=== PATIENT | female | born 1995 | race African-American/Black ===

== ENCOUNTER → 2021-01-17 19:15 | Outpatient (CLI) | payer BC, SELFPAY | PROVIDERS: Visit Provider Nurse Practitioner Family | DX: Z20.822 Contact with and (suspected) exposure to COVID-19 (principal) | CPT/HCPCS: U0003 ==

== ENCOUNTER 2021-02-06 02:47 | Emergency (ER) | payer BC, SELFPAY ==
[2021-02-06 03:02] VITALS: BP 154/96; PULSE 89; RESP 18; TEMP 36.6; O2SAT 100; BMI 37.4
--- NOTE | 2021-02-06 03:16 | CT_ITS ---
PROCEDURE: CT ABDOMEN PELVIS W CON CLINICAL INDICATION: ABD PAIN w/ n/v/d Nausea, vomiting, diarrhea COMPARISON: No exams were available for comparison TECHNIQUE: IV Contrast: 75ML Isovue 370 Oral Contrast None Axial images obtained with sagittal and coronal reformats. All CT scans at the facility use one or more dose reduction, viz: automated exposure control, ma/kV adjustment per patient size (including targeted exams where dose is matched to indication, i.e. head), or iterative reconstruction technique. FINDINGS: LOWER THORAX: No acute finding ABDOMEN & PELVIS: The liver, spleen, pancreas, and adrenal glands have an unremarkable appearance. There are nonobstructing bilateral renal calculi 2 mm in the upper pole on the right and 3 mm in the lower pole on the left. No ureteral calculi. No evidence of appendicitis. There are fluid-filled loops of small bowel involving the ilium measuring to 2.4 cm in diameter with air-fluid levels. There is some mild enhancement with suggestion of some minimal thickening of the terminal ileum best depicted on series 601, image 32. There is mild hyperemia of the small bowel mucosa and prominence of the adjacent mesenteric vasculature. Mild mucosal enhancement of the ascending colon which is fluid-filled nondistended. No free air evident. 2 cm left ovarian cyst. No abnormal fluid collections in the pelvis. Tiny umbilical hernia noted containing fat. Small nodes are present in the inguinal region bilaterally. No acute bony findings. IMPRESSION: 1. Fluid-filled small bowel loops with mucosal enhancement suggesting enteritis. There is some mucosal thickening of the terminal ileum versus nondistention. Crohn's disease would be a consideration. Please correlate with clinical findings. Partial small bowel obstruction is not excluded. 2. Fluid-filled ascending colon with some mucosal enhancement which may be related to accompanying colitis. 3. Nonobstructing bilateral renal calculi Dictated by: Bill Cuevas MD 02/06/2021 06:46 Bill Cuevas MD in [place] 02/06/2021 06:46
[2021-02-06 03:27] LABS: Microscopic, Urine URINE MICROSCOPIC (MICROSCOPIC)
[2021-02-06 03:29] LABS: Appearance,Urine CLEAR (Clear); Bilirubin,Urine Negative (Negative); Blood, Urine Negative (Negative); Color,Urine YELLOW (Yellow); Glucose,Urine (UA) Negative (Negative); Ketones,Urine Negative (Negative); Leukocyte Esterase,Urine Negative (Negative); Nitrate,Urine Negative (Negative); Protein,Urine Negative (Negative); Specific Gravity, Urine >= 1.030 (1.005-1.030); Urobilinogen,Urine 0.2 EU/dl (0.2)
[2021-02-06 03:31] LABS: Basophils % 0.3 % (0.1-2.0); Eosinophils # 0.2 K/mm3 (0.0-0.4); Eosinophils % 1.2 % (0.1-12.0); Hematocrit 45.1 % (37.0-47.0); Hemoglobin 14.1 g/dL (12.2-16.2); Lymphocytes # 2.1 K/mm3 (0.7-4.5); Lymphocytes % 14.9 % (10-50); Mean Corpuscular HGB Conc 31.4 g/dL (31.8-35.4); Mean Corpuscular Hemoglobin 27.8 pg (27.0-31.2); Mean Corpuscular Volume 88.7 fl (81-99); Mean Platelet Volume 8.2 fl (7.4-10.4); Monocytes # 0.8 K/mm3 (0.1-1.0); Monocytes % 5.6 % (1.7-9.3); Neutrophils # 10.7 K/mm3 (1.8-7.8); Platelet Count 233 K/mm3 (142-424); Red Blood Count 5.08 M/mm3 (4.20-5.40); Red Cell Distribution Width 13.8 % (11.5-17.5); White Blood Count 13.7 K/mm3 (4.8-10.8)
[2021-02-06 03:31] LABS: Urine Pregnancy, HCG Qual. Negative (Negative)
[2021-02-06 03:34] LABS: Chloride 105 mmol/L (98-107); Potassium 3.7 mmoL/L (3.5-5.1); Sodium 140 mmol/L (136-145)
[2021-02-06 03:36] LABS: Amylase 83 U/L (30-110); Blood Urea Nitrogen 12 mg/dl (7-17); Creatinine Clearance Estimated 151 mL/min (50-200); Estimated Glomerular Filt Rate 75 ml/min (>60); GFR (African American) 91 ML/MIN (>60)
[2021-02-06 03:37] LABS: Alanine Aminotransferase 24 U/L (12-78); Albumin Level 4.5 g/dl (3.5-5.0); Albumin/Globulin Ratio 1.3 (1.1-1.8); Alkaline Phosphatase 85 U/L (38-126); Anion Gap 9.7 mEq/L (5-15); Aspartate Amino Transferase 26 U/L (14-36); Bilirubin,Total 0.5 mg/dl (0.2-1.3); Calcium 10.8 mg/dl (8.4-10.2); Carbon Dioxide 29 mmol/L (22.0-30.0); Globulin 3.4 g/dL (1.3-3.2); Glucose 99 mg/dl (74-100); Lipase 208 U/L (23-300); Total Protein,Serum 7.9 g/dl (6.3-8.2)
[2021-02-06 03:43] LABS: C-Reactive Protein 0.9 mg/L (0-4)
[2021-02-06 03:46] LABS: Bacteria,Urine Trace /lpf; WBC,Urine Occasional #/hpf (0-3)
--- NOTE | 2021-02-06 03:52 | HMH.EDNVD ---
ED Disposition Clinical Impression: Colitis Disposition: Home, Self-Care Condition on Discharge: Good Instructions: DI for Colitis Additional Instructions: fluids and see pcp for follow up Referrals: PCP,No [Primary Care Provider] - - Critical Care Critical Care Time: No Attestation: On 02/06/21, the high probability of a clinically significant, sudden or life threatening deterioration of the following system(s) required my full and direct attention, intervention and personal management. The time I documented below is in addition to time spent performing reported procedures but includes the following listed in this critical care notation. Medical Decision Making - Medical Records Medical records reviewed: Yes: I reviewed the patient's medical records. - Fabiano Inquiry Pt receiving controlled substance: No Vital Signs: 02/06/21 03:02 02/06/21 04:18 Temperature 97.9 F Temperature Source Oral Pulse Rate [Right Brachial] 89 78 Respiratory Rate 18 18 Blood Pressure [Right Arm] 154/96 H 130/85 Blood Pressure Mean [Right Arm] 115 100 Blood Pressure Source [Right Arm] Automatic Cuff 02 Sat by Pulse Oximetry 100 100 Oxygen Delivery Method Room Air Room Air - Lab Data Lab results reviewed: Yes: I reviewed the patient's lab results. Lab Results 02/06/21 02:58: Urine Color Yellow, Urine Appearance Clear, Urine pH 6.0, Ur Specific Thomson >= 1.030, Urine Protein Negative, Urine Glucose (UA) Negative, Urine Ketones Negative, Urine Blood Negative, Urine Nitrate Negative, Urine Bilirubin Negative, Urine Urobilinogen 0.2, Ur Leukocyte Esterase Negative, Urine WBC Occasional, Ur Squamous Epith Cells 3-5, Urine Bacteria Trace 02/06/21 02:58: Urine HCG, Qual Negative 02/06/21 03:15: WBC 13.7 H, RBC 5.08, Hgb 14.1, Hct 45.1, MCV 88.7, MCH 27.8, MCHC 31.4 L, RDW 13.8, Plt Count 233, MPV 8.2, Neut % (Auto) 78.0, Lymph % (Auto) 14.9, Swisher % (Auto) 5.6, Eos % (Auto) 1.2, Baso % (Auto) 0.3, Neut # (Auto) 10.7 H, Lymph # (Auto) 2.1, Swisher # (Auto) 0.8, Eos # (Auto) 0.2, Baso # (Auto) 0.0, ESR 9 02/06/21 03:15: Sodium 140, Potassium 3.7, Chloride 105, Carbon Dioxide 29, Anion Gap 9.7, BUN 12, Creatinine 0.90, Estimated Creat Clear 151, Estimated GFR 75, Est GFR ( Amer) 91, Glucose 99, Calcium 10.8 H, Total Bilirubin 0.5, AST 26, ALT 24, Alkaline Phosphatase 85, C-Reactive Protein 0.9, Total Protein 7.9, Albumin 4.5, Globulin 3.4 H, Albumin/Globulin Ratio 1.3, Amylase 83 02/06/21 03:15: Lipase 208 Result diagrams: 02/06/21 03:15 02/06/21 03:15 Orders (Tests/Meds): ED MEDICATIONS Generic Name Dose Route Start Last Admin Trade Name Freq PRN Reason Stop Dose Admin Sodium Chloride 1,000 mls @ 999 mls/hr 02/06/21 03:30 02/06/21 03:26 Sod Chlor 0.9% 1000ml Bag IV 02/06/21 04:30 999 mls/hr .Q1H1M HOOD Administration Sodium Chloride 1,000 mls @ 999 mls/hr 02/06/21 04:45 02/06/21 04:43 Sod Chlor 0.9% 1000ml Bag IV 02/06/21 05:45 999 mls/hr .Q1H1M HOOD Administration Sodium Chloride 8 ml 02/06/21 03:38 Sodium Chloride 0.9% 10ml Vial IV 03/08/21 03:37 NEEDED PRN dilute pepcid Discontinued Medications Generic Name Dose Route Start Last Admin Trade Name Freq PRN Reason Stop Dose Admin Famotidine 20 mg 02/06/21 03:38 02/06/21 03:39 Famotidine 20mg/2ml Vial IV 02/06/21 03:39 20 mg ONCE ONE Administration Iopamidol 75 ml 02/06/21 04:43 02/06/21 04:44 Iopamidol-370 (76%);100ml Bottle IV 02/06/21 04:44 75 ml ONCE ONE Administration Ketorolac Tromethamine 30 mg 02/06/21 03:37 02/06/21 03:39 Ketorolac 30mg/Ml Vial IV 02/06/21 03:38 30 mg ONCE ONE Administration Metoclopramide HCl 10 mg 02/06/21 03:38 02/06/21 03:39 Metoclopramide Hcl 10mg/2ml Vial IVP 02/06/21 03:39 10 mg ONCE ONE Administration Ondansetron HCl 4 mg 02/06/21 03:38 02/06/21 03:39 Ondansetron 4mg/2ml Vial IV 02/06/21 03:39 4 mg ONCE ONE Administration Sodium
[2021-02-06 03:57] LABS: Erythrocyte Sedimentation Rate 9 mm/hr (0-20)
[2021-02-06 04:18] VITALS: BP 130/85; PULSE 78; RESP 18; O2SAT 100
--- NOTE | 2021-02-06 04:36 | PC.NURSE ---
Dr. Riggs s/w WILLIAMAD
[2021-02-06 05:00] VITALS: BP 133/80; PULSE 80; RESP 16; O2SAT 100
[2021-02-06 05:18] VITALS: BP 135/80; PULSE 76; RESP 16; TEMP 36.6; O2SAT 100
== END 2021-02-06 05:23 | disposition home or self-care (01) ==
PROVIDERS: Emergency Provider Emergency Medicine
DX: K52.9 Noninfective gastroenteritis and colitis, unspecified (principal); F17.210 Nicotine dependence, cigarettes, uncomplicated
CPT/HCPCS: 74177; 80053; 81001; 81025; 82150; 83690; 85025; 85651; 86140; 96365; 96366; 96375; 99284; J2405; Q9967

== ENCOUNTER 2021-03-16 16:32 | Emergency (ER) | payer BC, SELFPAY ==
[2021-03-16 16:54] VITALS: BP 128/75; PULSE 95; RESP 20; TEMP 37.1; O2SAT 100; BMI 36.6
--- NOTE | 2021-03-16 17:00 | HMH.EDUTC ---
[facility] [place] Disposition Clinical Impression: Encounter for laboratory testing for COVID-19 virus Disposition: Home, Self-Care Condition on Discharge: Good Instructions: DI for COVID-19 (Suspected or Confirmed ), COVID-19: Testing and Tracing, Preventing the Spread of Coronavirus Discharge Instructions Additional Instructions: You were tested for today for COVID19 your test result should be back in the next 24-48 hours, you may call to the [facility] to see if your test results are back in the next 48 hours [phone] [facility] hours are 9am-9pm You was given a handout with instructions for Self Quarantine and Self isolation for while you wait on test results and what to do if they are positive If you are positive the Health Dept will be contacting you also Referrals: PCP,Ivette [Primary Care Provider] - As needed Time of Disposition: 17:00 Medical Decision Making - Fabiano Inquiry Pt receiving controlled substance: No Fabiano was queried for this patient: No Vital Signs: 03/16/21 16:54 Temperature 98.8 F Temperature Source Oral Pulse Rate [Right] 95 H Respiratory Rate 20 Blood Pressure [Right Arm] 128/75 Blood Pressure Mean [Right Arm] 92 02 Sat by Pulse Oximetry 100 Oxygen Delivery Method Room Air Orders (Tests/Meds): ORDERS Category Date Time Status Covid-19 Nasal PCR ([facility]) Routine Lab 03/16/21 16:48 Received [facility] [place] HPI - General Stated complaint: COVID TEST Time Seen by Provider: 03/16/21 17:01 Description of Symptoms (Recalled from Triage Doc. by RN): pt here for a covid test that she needs to go out of the country for her hone[place]. Pt denies any sx's. HEENT Symptoms (Recalled from RN notes): No Resp Symptoms (Recalled from RN notes): No Skin Symptoms (Recalled from RN notes): No MS Symptoms (Recalled from RN notes): No Functional Status (Recalled from RN notes): n/a - History of Present Illness Provider Complaint: Patient state that she is getting and leaving for her honeymoon and they require her to have negative COVID test before she can fly to her destination Denies any symptoms or exposures - Related Data Home Medications Medication Instructions Recorded Confirmed No Known Home Medications 01/17/21 03/16/21 Allergies Allergy/AdvReac Type Severity Reaction Status Date / Time No Known Allergies Allergy Verified 01/17/21 18:50 - Worker's Comp Is this a Worker's Comp case?: No [facility] History - Hepatitis A Screen Drug use history?: No High risk sexual behaviors?: No History of sexually transmitted infection?: No Currently employed?: No Childcare worker?: No Do you have indoor plumbing?: Yes Do you have electricity?: Yes Attestation statement:: This patient has been screened for Hepatitis A risk factors. I have reviewed the patient's past medical history: Yes Medical History: Denies:: Diabetes Mellitus Type 1, Diabetes Mellitus Type 2 Other Surgeries: Yes: No Previous Surgery - Social History Smoking Status: Current every day smoker # Packs/Day (cigarettes): 1 Alcohol Intake: current Alcohol Intake Frequency:: a few times a month Substance Use Type: denies use Occupational Status: employed Household Members: significant other Family Hx:: Non-contributory ROS Obtained: Yes All systems reviewed & no additional complaints, Yes Systems reviewed as appropriate & no additional complaints - Constitutional Constitutional: Reports system reviewed and no additional complaints, except as docu - ENT Ears, Nose, Mouth, and Throat: Reports system reviewed and no additional complaints, except as docu - Cardiovascular Cardiovascular: Reports system reviewed and no additional complaints, except as docu - Respiratory Respiratory: Reports system reviewed and no additional complaints, except as docu - Gastrointestinal Gastrointestingal: Reports: system reviewed and no additional complaints, except as docu Physical Exam - General General appearance: alert, in no apparent distres
[2021-03-16 17:06] VITALS: BP 125/78; PULSE 90; RESP 20; TEMP 37.1; O2SAT 100
== END 2021-03-16 17:09 | disposition home or self-care (01) ==
PROVIDERS: Emergency Provider Nurse Practitioner
DX: Z20.822 Contact with and (suspected) exposure to COVID-19 (principal); F17.210 Nicotine dependence, cigarettes, uncomplicated
CPT/HCPCS: 99202; G0463; U0003

== ENCOUNTER 2021-11-06 21:12 | Emergency (ER) | payer BC, SELFPAY ==
[2021-11-06 21:13] VITALS: BP 141/89; PULSE 103; RESP 18; TEMP 36.7; O2SAT 96; BMI 38.2
--- NOTE | 2021-11-06 21:28 | HMH.EDGENADL ---
ED Disposition Clinical Impression: Viral pharyngitis Otalgia Qualifiers: Laterality: bilateral Qualified Code(s): H92.03 - Otalgia, bilateral Disposition: Home, Self-Care Condition on Discharge: Good Instructions: DI for Viral Pharyngitis, Sore Throat, DI for Ear Pain-Adult Additional Instructions: You have been evaluated for sore throat and ear pain. Please take daily allergy medication, cetirizine. Take 5 days of steroids to help with inflammation. Follow-up with your primary care doctor in 24 to 48 hours for symptom recheck. You do not have an ear infection on exam today. Have your ears rechecked in 2 days. Return to the emergency department for any new or worsening symptoms, fevers, difficulty swallowing, worsening pain or any other concerns Prescriptions: Cetirizine HCl 10 mg PO DAILY #30 tab Transmission Status: Pending to [email or web address] #[id number] predniSONE [Prednisone 20mg Tab] 20 mg PO DAILY #5 tab Transmission Status: Pending to [email or web address] #[id number] Referrals: Provider,Referral, [Primary Care Provider] - Time of Disposition: 21:47 - Critical Care Critical Care Time: No Attestation: On 11/06/21, the high probability of a clinically significant, sudden or life threatening deterioration of the following system(s) required my full and direct attention, intervention and personal management. The time I documented below is in addition to time spent performing reported procedures but includes the following listed in this critical care notation. Medical Decision Making - Medical Records Medical records reviewed: Yes: I reviewed the patient's medical records. - Fabiano Inquiry Pt receiving controlled substance: No Vital Signs: 11/06/21 21:13 Temperature 98.1 F Temperature Source Oral Pulse Rate [Right] 103 H Respiratory Rate 18 Blood Pressure [Right Arm] 141/89 H Blood Pressure Mean [Right Arm] 106 02 Sat by Pulse Oximetry 96 - Lab Data Lab Results 11/06/21 21:21: Group A Strep Rapid Negative Orders (Tests/Meds): ED MEDICATIONS Discontinued Medications Generic Name Dose Route Start Last Admin Trade Name Freq PRN Reason Stop Dose Admin Dexamethasone Sodium Phosphate 10 mg 11/06/21 21:20 11/06/21 21:27 Dexamethasone 4mg/Ml 5ml Mdv PO 11/06/21 21:21 10 mg ONCE ONE Administration ORDERS Category Date Time Status Strep Screen Confirmation Stat Micro 11/06/21 21:21 Received Medical Decision Narrative: In summary this is a 26-year-old female presenting to the emergency department with sore throat and ear pain. Patient clinically stable on arrival. Vital signs within normal limits. Concern for strep pharyngitis or viral upper respiratory infection. Physical exam does not show a focal otitis media or externa. No tenderness over the mastoid to suggest mastoiditis. No headache or neck pain to suggest meningitis. We will start with rapid strep testing. Patient given 8 mg oral dexamethasone. Rapid strep negative. Patient counseled on viral pharyngitis and viral otitis. Recommended 5 days of prednisone and cetirizine. She has follow-up with ENT at [facility] next month. Recommended PCP follow-up within the next 1 to 2 days for symptom recheck. Given return precautions. Stable for discharge. General Adult HPI - General Chief complaint: Ear Stated complaint: bilateral ear ache, loss of hearing L ear Time Seen by Provider: 11/06/21 21:28 Mode of Arrival: Ambulatory Source of Information: Patient Limitations: No Limitations Description of Symptoms (Recalled from ER Triage Doc. by RN): pt c/o bilateral ear pain and sore throat - History of Present Illness HPI narrative: 26-year-old female presenting to the emergency department with ear pain and sore throat. Sore throat started 4 to 5 days ago. Located on both sides. Pain with swallowing. No difficulty breathing. Over the last 2 days she has developed a throbbing sen
[2021-11-06 21:39] LABS: Strep Scrn Group A (Rapid) Negative (Negative)
[2021-11-06 22:26] VITALS: BP 137/78; PULSE 99; RESP 18; TEMP 36.7; O2SAT 96
== END 2021-11-06 22:27 | disposition home or self-care (01) ==
PROVIDERS: Emergency Provider Emergency Medicine
DX: J02.9 Acute pharyngitis, unspecified (principal); H92.03 Otalgia, bilateral; F17.210 Nicotine dependence, cigarettes, uncomplicated
CPT/HCPCS: 87430; 99282

== ENCOUNTER 2024-08-23 22:26 | Emergency (ER) | payer BC, SELFPAY ==
[2024-08-23 22:26] VITALS: RESP 20; O2SAT 100; BMI 29.0
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
--- NOTE | 2024-08-23 22:32 | PC.NURSE ---
Called to assist patient in exiting police car, however, patient looked at all of us, confirmed her EMV of 15 and informed us she was choosing not to exit the vehicle and would forego assessment because I AM BLACK, not white . Patient further elaborated that she was not intereseted in attempting to trust the staff nor the police. [employer] officers Bear & Kirill present during entirety of conversation. Despite extensive discussion from Dr Lyon with patient, patient continues to elect to refuse treatment or assessment. AMA obtained and witnessed per all present staff. Based on refusal, pt is medically cleared for incarceration to the best ability of the ED physician and her MSE.
[2024-08-23 22:49] VITALS: BP 0/0; PULSE 0; RESP 0; TEMP -17.7; TEMP 0; O2SAT 0
== END 2024-08-23 23:06 | disposition left against medical advice (07) ==
PROVIDERS: Emergency Provider Emergency Medicine
DX: Z00.8 Encounter for other general examination; Y04.0XXA Assault by unarmed brawl or fight, initial encounter
CPT/HCPCS: 99281